=== PATIENT | male | born 1970 | race Caucasian/White ===

== ENCOUNTER 2018-07-18 13:59 | Emergency (ER) | payer OTHER ==
[~2018-07-18] VITALS: Ht 175.3 cm; Wt 93.0 kg
[~2018-07-18 13:59] MED LIST: ACETAMINOPHEN-1 EAC1 PO; AMOXICILLIN500 M1 PO; AMOXICILLIN875 MG PO; BENAZEPRIL HCL20 MG PO; BYSTOLIC 5 MG5 M1 PO; CELEBREX 200 M200 M1; COZAAR 25 MG TA25 M1 PO; FLEXERIL PO; HYDROCODON-ACE1 EAC7 PO; IBUPROFEN 800800 M1 PO; LIPITOR40 MG; NAPROSYN500 MG PO; NOHOMEMEDICATIONS; NORCO 5-325 TA1 EACH PO; NORFLEX100 MG PO; RITALIN5 MG PO; ROBAXIN500 MG PO; VICODIN 5-5001 EACH PO; ZOCOR20 MG PO
[2018-07-18] MEDS ORDERED: LIPITOR10 MG PO (14:18)
[2018-07-18] MEDS ORDERED: NORCO 5-325 TA1 EACH PO (15:32)
== END 2018-07-18 15:49 | disposition home or self-care (01) ==
LOC: ER 13:59
DX: S52.511A Displaced fracture of right radial styloid process, initial encounter for closed fracture (principal); I10 Essential (primary) hypertension; E78.00 Pure hypercholesterolemia, unspecified; F98.8 Other specified behavioral and emotional disorders with onset usually occurring in childhood and adolescence; W01.0XXA Fall on same level from slipping, tripping and stumbling without subsequent striking against object, initial encounter; Y92.89 Other specified places as the place of occurrence of the external cause; Y93.89 Activity, other specified; Y99.8 Other external cause status

== ENCOUNTER 2020-02-02 15:35 | Emergency (ER) | payer OTHER ==
[~2020-02-02] VITALS: Ht 175.3 cm; Wt 99.8 kg
[~2020-02-02 15:35] MED LIST changes: +LIPITOR10 MG PO; +LISINOPRIL20 MG PO; +MOBIC7.5 MG PO; +NABUMETONE 750750 M1 PO; +TRAMADOL 50 MG50 MG PO; +TYLENOL WITH CO1 TA1 PO
[2020-02-02] MEDS ORDERED: ULTRAM 50MG TAB50 MG PO (17:34)
[2020-02-02] MEDS ORDERED: MOBIC15 MG PO (17:34)
[2020-02-02 18:11] VITALS: BP 146/96
== END 2020-02-02 18:12 | disposition home or self-care (01) ==
LOC: ER 15:35
DX: M65.4 Radial styloid tenosynovitis [de Quervain] (principal); I10 Essential (primary) hypertension; E78.00 Pure hypercholesterolemia, unspecified

== ENCOUNTER 2020-07-20 10:32 | Emergency (ER) | payer OTHER ==
[~2020-07-20] VITALS: Ht 175.3 cm; Wt 93.0 kg
[~2020-07-20 10:32] MED LIST changes: +MOBIC15 MG PO; +ULTRAM 50MG TAB50 MG PO
[2020-07-20] MEDS ORDERED: MELOXICAM15 MG PO (11:51)
[2020-07-20] MEDS ORDERED: PREDNISONE 20 M20 MG PO (11:51)
[2020-07-20 12:08] VITALS: BP 139/80
== END 2020-07-20 12:10 | disposition home or self-care (01) ==
LOC: ER 10:32
DX: M77.8 Other enthesopathies, not elsewhere classified (principal); M25.532 Pain in left wrist; E78.5 Hyperlipidemia, unspecified

== ENCOUNTER 2020-12-21 20:41 | Emergency (ER) | payer OTHER ==
[~2020-12-21] VITALS: Ht 175.3 cm; Wt 95.3 kg
[~2020-12-21 20:41] MED LIST changes: +MELOXICAM15 MG PO; +PREDNISONE 20 M20 MG PO
[2020-12-21 21:09] VITALS: BP 171/100
[2020-12-21] MEDS ORDERED: [UNRECOGNIZED DRUG - REMARK] (21:13)
[2020-12-21] MEDS ORDERED: TRAMADOL 50 MG50 MG PO (21:43)
[2020-12-21] MEDS ORDERED: PENICILLIN VK500 M1 PO (21:43)
== END 2020-12-21 21:56 | disposition home or self-care (01) ==
LOC: ER 20:41
DX: K08.89 Other specified disorders of teeth and supporting structures (principal); I10 Essential (primary) hypertension; E78.5 Hyperlipidemia, unspecified

== ENCOUNTER 2021-04-23 17:13 | Emergency (ER) | payer OTHER ==
[~2021-04-23] VITALS: Ht 175.3 cm; Wt 97.5 kg
[~2021-04-23 17:13] MED LIST changes: +PENICILLIN VK500 M1 PO; +[UNRECOGNIZED DRUG - REMARK]
[2021-04-23 17:16] VITALS: BP 139/97
[2021-04-23] MEDS ORDERED: NOHOMEMEDICATIONS (17:22)
[2021-04-23] MEDS ORDERED: TRAMADOL 50 MG50 MG PO (19:03)
== END 2021-04-23 19:00 | disposition home or self-care (01) ==
LOC: ER 17:13
DX: S63.418A Traumatic rupture of collateral ligament of other finger at metacarpophalangeal and interphalangeal joint, initial encounter (principal); I10 Essential (primary) hypertension; E78.00 Pure hypercholesterolemia, unspecified; Z98.890 Other specified postprocedural states; Z79.899 Other long term (current) drug therapy; X50.1XXA Overexertion from prolonged static or awkward postures, initial encounter; Y93.89 Activity, other specified; Y92.89 Other specified places as the place of occurrence of the external cause; Y99.0 Civilian activity done for income or pay